=== PATIENT | female | born 1985 | race Caucasian/White ===

== ENCOUNTER 2018-02-16 18:45 | Emergency (ER) | payer BC ==
[2018-02-16 19:41] LABS: ADD MAN DIFF? NO
[2018-02-16 19:42] LABS: BASO # 0.1 x10^3/uL (0.0-0.2); BASO % 1 % (0-3); EOS # 0.1 x10^3/uL (0.0-0.7); EOS % 1 % (0-3); HEMATOCRIT 41.4 % (36.0-47.0); HEMOGLOBIN 14.2 g/dL (12.0-15.5); LYMPH # 3.6 x10^3/uL (1.0-4.8); LYMPH % 35 % (24-48); MEAN CORPUSCULAR HEMOGLOBIN 32 pg (25-35); MEAN CORPUSCULAR HGB CONC 34 g/dL (31-37); MEAN CORPUSCULAR VOLUME 95 fL (79-100); MONO # 0.6 x10^3/uL (0.0-1.1); MONO % 6 % (0-9); NEUT # 5.8 x10^3uL (1.8-7.7); NEUT % 57 % (31-73); PLATELET COUNT 244 x10^3/uL (140-400); RED BLOOD COUNT 4.37 x10^6/uL (3.50-5.40); RED CELL DISTRIBUTION WIDTH 12.3 % (11.5-14.5); WHITE BLOOD COUNT 10.2 x10^3/uL (4.0-11.0)
[2018-02-16 19:45] LABS: BILIRUBIN,URINE NEGATIVE (NEG); CLARITY,URINE CLEAR; COLOR,URINE YELLOW; GLUCOSE,URINE NEGATIVE (NEG); NITRITE,URINE NEGATIVE (NEG); PROTEIN,URINE NEGATIVE (NEG-TRACE)
[2018-02-16 19:54] LABS: ANION GAP 8 (6-14); BLOOD UREA NITROGEN 13 mg/dL (7-20); BUN/CREATININE RATIO 22 (6-20); CALCIUM 9.5 mg/dL (8.5-10.1); CARBON DIOXIDE 29 mmol/L (21-32); CHLORIDE 102 mmol/L (98-107); CREATININE 0.6 mg/dL (0.6-1.0); GFR 117.4; GLUCOSE 89 mg/dL (70-99); POTASSIUM 4.2 mmol/L (3.5-5.1); SODIUM 139 mmol/L (136-145)
[2018-02-16 19:57] LABS: BACTERIA,URINE FEW /HPF (0-FEW); RBC,URINE RARE /HPF (0-2); SQUAMOUS EPITHELIAL CELL,UR FEW /LPF; WBC,URINE OCC /HPF (0-4)
[2018-02-16 20:01] LABS: ALBUMIN 4.3 g/dL (3.4-5.0); ALBUMIN/GLOBULIN RATIO 1.3 (1.0-1.7); ALK PHOS 63 U/L (46-116); ALT (SGPT) 18 U/L (14-59); AST (SGOT) 9 U/L (15-37); TOTAL BILIRUBIN 0.4 mg/dL (0.2-1.0); TOTAL PROTEIN 7.7 g/dL (6.4-8.2)
== END 2018-02-16 20:38 | disposition home or self-care (01) ==
LOC: ER 18:45
DX: T50.905A Adverse effect of unspecified drugs, medicaments and biological substances, initial encounter (principal); F51.4 Sleep terrors [night terrors]; R68.2 Dry mouth, unspecified; Y92.89 Other specified places as the place of occurrence of the external cause
CPT/HCPCS: 36415; 80053; 81001; 85025; 99284

== ENCOUNTER 2019-07-30 19:21 | Emergency (ER) | payer BC ==
[2019-07-30 20:00] VITALS: BP 155/100
[2019-07-30] MEDS ORDERED: BENZ100C PO (20:42)
--- NOTE | 2019-07-30 20:43 | PHYS DOC ---
Past Medical History Past Medical History: Asthma Additional Past Medical Histor: ADD Past Surgical History: Tonsillectomy Alcohol Use: None Drug Use: Marijuana Adult General Chief Complaint Chief Complaint: ASTHMA HPI HPI Patient is a 33 year old female, accompanied by her mother, who presents to the emergency department with complaints of a dry cough, nasal congestion, runny nose with clear drainage, body aches, and fatigue for the last 4 days. Patient states she has a history of asthma. She currently denies any abdominal pain, nausea, vomiting, diarrhea, rash, shortness of breath, or sore throat. Patient denies any known exposure to influenza. She states she has been using her albu terol inhaler at home with relief of intermittent wheezing and shortness of breath. She currently denies any pain. All other ROS is neg unless otherwise noted in HPI. Review of Systems Review of Systems See Above Current Medications Current Medications Current Medications Medications (Trade) Dose Ordered Sig/Lucius Start Time Stop Time Status Last Admin Dose Admin Dexamethasone Sodium Phosphate (Decadron) 10 mg 1X ONCE 07/30/19 20:45 07/30/19 20:46 DC 07/30/19 20:37 10 MG Allergies Allergies Allergies Coded Allergies Type Severity Reaction Last Updated Verified amphetamine Allergy Unknown 07/30/19 Yes dextroamphetamine Allergy Unknown 07/30/19 Yes Physical Exam Physical Exam See Above Constitutional: Well developed, well nourished, no acute distress, ill appearance HENT: Normocephalic, atraumatic, bilateral external ears normal, bilateral TMs normal, posterior pharynx normal oropharynx moist, nose congested with erythema and edema of the nasal turbinates bilaterally Eyes: PERRLA, conjunctiva injected bilaterally, no discharge. [] Neck: Normal range of motion, no stridor. [] Cardiovascular:Heart rate regular rhythm, no murmur [] Lungs & Thorax: Bilateral breath sounds clear to auscultation, Respirations even and unlabored, no retractions, no respiratory distress Skin: Warm, dry, no erythema, no rash. [] Back: No tenderness Extremities: No cyanosis, ROM intact Neurologic: Alert and oriented X 3, no focal deficits noted. [] Psychologic: Affect normal, judgement normal, mood normal. Current Patient Data Vital Signs Vital Signs Date Time Temp Pulse Resp B/P (MAP) Pulse Ox O2 Delivery O2 Flow Rate FiO2 07/30/19 20:00 98.7 95 12 155/100 (118) 100 Room Air 98.7 EKG EKG [] Radiology/Procedures Radiology/Procedures [] Course & Med Decision Making Course & Med Decision Making Pertinent Labs and Imaging studies reviewed. (See chart for details) Discussed flulike illness with patient, however patient is greater than 48 hours since onset of her symptoms. We'll prescribe Tessalon Perles for cough. Patient was given 10 mg of Decadron by mouth in the emergency department. Follow-up with primary care doctor this week, return to the ER if symptoms worsen. Patient verbalized an understanding of home care, medications, follow-up, and return to ED instructions and was in agreement with the plan of care. [] Dragon Disclaimer Dragon Disclaimer This electronic medical record was generated, in whole or in part, using a voice recognition dictation system. Departure Departure Impression: Primary Impression: Flu-like symptoms Additional Impression: URI with cough and congestion Disposition: HOME, SELF-CARE Condition: STABLE Referrals: RUFINO VILLATORO MD (PCP) Patient Instructions: Influenza, Adult, [id number] Additional Instructions: Fill the prescription and take as directed. Continue using your home medications as prescribed. Alternate Tylenol and ibuprofen as needed for fever. Increase clear fluids and rest. Diet as tolerated. Recommend use of [id number] flu medications as needed for relief of your symptoms. Follow up with your primary care doctor in 1-2 days, return to the ER if symptoms worsen. Scripts Benzonatate (TESSALON PERLE) 100 Mg Capsule 1 CAP PO TID PRN for COUGH for 7 Days, #21 CAP 0 Refills Prov: LEO ARROYO [employer] 07/30/19 Problem Qualifiers LEO ARROYO [employer] Jul 30, 2019 20:43
[2019-07-30] MEDS ORDERED: DEXAMETHASONE SOD PHOS 20 MG/5 ML VIAL. PO ONE (20:45)
== END 2019-07-30 21:01 | disposition home or self-care (01) ==
LOC: ER 19:21
DX: J06.9 Acute upper respiratory infection, unspecified (principal); J45.909 Unspecified asthma, uncomplicated; Z88.8 Allergy status to other drugs, medicaments and biological substances
CPT/HCPCS: 99283; J1100